=== PATIENT | female | born 1975 | race Caucasian/White ===

== ENCOUNTER 2023-04-08 11:06 | Outpatient (CLI) | payer OTHER, SELFPAY | END 2023-04-08 11:07 | disposition home or self-care (01) | LOC: ANHAUDIO 11:07 | DX: H66.93 Otitis media, unspecified, bilateral (principal); H69.83 Other specified disorders of Eustachian tube, bilateral; H90.42 Sensorineural hearing loss, unilateral, left ear, with unrestricted hearing on the contralateral side; H90.11 Conductive hearing loss, unilateral, right ear, with unrestricted hearing on the contralateral side | CPT/HCPCS: 92557; 92567 ==

== ENCOUNTER 2025-01-08 15:22 | Emergency (ER) | payer SELFPAY ==
--- OUTSIDE RECORDS SUMMARY | 2025-01-08 15:26 | XMS_ITS | Data Portability ---
[facility] Address [address] [place] [address] Assessment Encounter Date Assessment Date Assessment LastModified by Organization Details LastModified Time 05/26/2021 05/26/2021 colonoscopy due summer 2022 [email or web address] Not available 05/27/2021 12:42:40 11/01/2022 11/01/2022 WESLEY screening if labs neg? punch biopsy for lesion on back [email or web address] Not available 11/01/2022 14:20:30 Plan of Treatment Reminders Order Date Submit Date Provider Last Modified By Organization Details Last Modified Time Details Appointments None recorded. Lab lipid panel, serum 2022 023 [facility], [address], [place], [address], 3 19:08:43 HbA1c (hemoglob in A1c), blood 2022 023 [facility], [address], [place], [address], 3 10:14:13 vitamin B12, serum 2022 023 [facility], [address], [place], [address], 3 10:14:13 ferritin, serum or plasma 2022 023 [facility], [address], [place], [address], 3 10:14:15 iron + total iron-bind ing capacity (TIBC), serum 2022 023 [facility], [address], [place], [address], 3 10:14:12 CBC w/ auto diff 2022 023 [facility], [address], [place], [address], 3 19:08:44 Hepatitis C IgG Ab, qual, serum 2022 023 [facility], [address], [place], [address], 3 10:14:11 CMP, serum or plasma 2022 023 [facility], [address], [place], [address], 3 19:08:43 TSH, ultra-sen sitive, serum 2022 023 [facility], [address], [place], [address], 3 10:14:14 Referral None recorded. Procedures None recorded. Surgeries None recorded. Imaging XR, finger(s) , 2 or more view 2024 025 [facility], [address] [place], [address], 5 13:33:39 XR, hand, 3 or more view 2024 025 [facility], [address] [place], [address], 5 23:12:45 MAMMO, screening , digital, bilateral 2020 021 [facility] (Radiology), [address], [place], [address], 1 11:20:22 Medication Orders Cymbalta 30 mg capsule,d elayed release 2022 023 [facility] #30304, [address], [place], [place], [id number], 5 11:05:23 cyclobenz aprine 10 mg tablet 2022 023 [facility] #26438, [address], [place], [place], [id number], 3 10:35:21 hydroxyzi ne pamoate 25 mg capsule 2022 023 [facility] #42687, [address], [place], [place], [id number], 3 14:22:13 duloxetin e 60 mg capsule,d elayed release 2020 021 [email or web address] [facility] #39213, [address], [place], [place], [id number], 3 10:31:04 cyclobenz aprine 10 mg tablet 2020 021 [facility] #10467, [address] [place], [place], [id number], 1 11:10:36 levothyro xine 150 mcg tablet 2020 021 [facility] #74284, [address] [place], [place], [id number], 5 11:04:06 Patient TargetsNo targets recorded. Patient Instructions Encounter Date Encounter Id Patient Instructions Last Modified By Organization Details Last Modified Time 11/01/2022 [id number] Quitting Tobacco : Care Instructions [email or web address] Not available 11/01/2022 14:22:07 A healthy lifestyle: care instructions [email or web address] Not available 11/01/2022 10:35:12 11/05/2022 [id number] I was present fo r the procedure and agree with the documented procedure and plan. Tello Bucio MD, [facility] [email or web address] Not available 11/08/2022 09:55:31 07/03/2024 [id number] I was present in the clinic to discuss this patient at the time of the visit. I agree with the documented assessment and plan Víctor Sanchez MD [email or web address] Not available 07/25/2024 13:04:08 07/25/2024 [id number] Attending Physician Attestation I did not personally see or examine the patient with the resident. I was physically present to provide indirect supervision through entire encounter. I have reviewed the documentation and agree with the history, physical findings, work-up, and medical decision making as recorded. Niharika Mcmillan MD [email or web address] Not available 07/25/2024 11:13:25 Reason for Referral None Reported. Results Created Date Observation Date Name Description Value Unit Range Abnormal Flag Note LastModifiedBy Organization Detail LastModifiedTime 10/20/1910/19/2022 pap, IG + HR HPV Pap,thinprep ,HPV negati ve Not Available Not Available 14:21:03 11/02/19 23 11/01/2022 LIPID PANEL cholesterol, total 354.3 mg/dL 140.0- 200.0 above high normal Not Available [facility] Department [address] [place], [address], 11/01/2022 19:08:43 11/02/19 23 11/01/2022 LIPID PANEL triglyceride s 285 mg/dL <=150 above high normal Not Available [facility] Department [address] [place], [address], 11/01/2022 19:08:43 11/02/19 23 11/01/2022 LIPID PANEL HDL cholesterol 39.5 mg/dL 40.0-1 00.0 below low normal Not Available [facility] Department [address] [place], [address], 11/01/2022 19:08:43 11/02/19 23 11/01/2022 LIPID PANEL VLDL cholesterol anish 57.00 mg/dL 5.00-4 0.00 above high normal Not Available [facility] Department [address] [place], [address], 11/01/2022 19:08:43 11/02/19 23 11/01/2022 LIPID PANEL LDL chol calc ([facility]) 253.4 mg/dL 0.0-99 .0 above high normal Not Available [facility] Department [address] [place], [address], 11/01/2022 19:08:43 11/02/19 23 11/01/2022 COMP. METAB OLIC PANEL (14) glucose 99 mg/dL 65-99 ANION GP 17.0 mmol/ L N OSMOL 283.0 mOsM/ L N REFER ENCE RANGE : 275.0 -301. 0 Not Available [facility] Department [address] [place], [address], 11/01/2022 19:08:43 11/02/19 23 11/01/2022 COMP. METAB OLIC PANEL (14) BUN 22 mg/dL 8-26 Not Available [facility] Department [address] [place], [address], 11/01/2022 19:08:43 11/02/19 23 11/01/2022 COMP. METAB OLIC PANEL (14) creatinine 0.67 mg/dL 0.50-1 .40 Not Available [facility] Department [address] [place], [address], 11/01/2022 19:08:43 11/02/19 23 11/01/2022 COMP. METAB OLIC PANEL (14) eGFR 107 mL/mi n/1.7 3 >=60 Not Available [facility] Department [address] [place], [address], 11/01/2022 19:08:43 11/02/19 23 11/01/2022 COMP. METAB OLIC PANEL (14) BUN/creatini ne ratio 32.1 Not Available [facility] Department [address] [place], [address], 11/01/2022 19:08:43 11/02/19 23 11/01/2022 COMP. METAB OLIC PANEL (14) sodium 140.0 mmol/ L 136.0- 144.0 Not Available [facility] Department [address] [place] [address], [address], 11/01/2022 19:08:43 11/02/19 23 11/01/2022 COMP. METAB OLIC PANEL (14) potassium 4.5 mmol/ L 3.5-5. 3 Not Available [facility] Department [address] [place] [address], [address], 11/01/2022 19:08:43 11/02/19 23 11/01/2022 COMP. METAB OLIC PANEL (14) chloride 104 mmol/ l 101-11 1 Not Available [facility] Department [address] [place] [address], [address], 11/01/2022 19:08:43 11/02/19 23 11/01/2022 COMP. METAB OLIC PANEL (14) carbon dioxide, total 23.7 mmol/ L 21.0-3 2.0 Not Available [facility] Department [address] [place] [address], [address], 11/01/2022 19:08:43 11/02/19 23 11/01/2022 COMP. METAB OLIC PANEL (14) calcium 10.0 mg/dL 8.2-10 .0 Not Available [facility] Department [address] [place], [address], 11/01/2022 19:08:43 11/02/19 23 11/01/2022 COMP. METAB OLIC PANEL (14) protein, total 7.3 g/dL 6.7-8. 2 Not Available [facility] Department [address] [place], [address], 11/01/2022 19:08:43 11/02/19 23 11/01/2022 COMP. METAB OLIC PANEL (14) albumin 4.5 g/dL 3.5-5. 5 Not Available [facility] Department [address] [place], [address], 11/01/2022 19:08:43 11/02/19 23 11/01/2022 COMP. METAB OLIC PANEL (14) globulin, total 2.8 g/dL 1.5-4. 5 Not Available [facility] Department [address] [place], [address], 11/01/2022 19:08:43 11/02/19 23 11/01/2022 COMP. METAB OLIC PANEL (14) A/G ratio 1.6 Not Available [facility] Department [address] [place], [address], 11/01/2022 19:08:43 11/02/19 23 11/01/2022 COMP. METAB OLIC PANEL (14) bilirubin, total 0.4 mg/dL 0.0-1. 2 Not Available [facility] Department [address] [place], [address], 11/01/2022 19:08:43 11/02/19 23 11/01/2022 COMP. METAB OLIC PANEL (14) alkaline phosphatase 64.4 IU/L 42.0-1 21.0 Not Available [facility] Department [address] [place], [address], 11/01/2022 19:08:43 11/02/19 23 11/01/2022 COMP. METAB OLIC PANEL (14) AST (SGOT) 35.7 U/L 10.0-4 2.0 Not Available [facility] Department [address] [place], [address], 11/01/2022 19:08:43 11/02/19 23 11/01/2022 COMP. METAB OLIC PANEL (14) ALT (SGPT) 47.9 U/L 10.0-6 0.0 Not Available [facility] Department [address] [place], [address], 11/01/2022 19:08:43 11/02/19 23 11/01/2022 CBC WITH DIFFE RENTI AL/PL ATELE T WBC 7.8 K/uL 3.4-10 .8 Not Available [facility] Department [address] [place], [address], 11/01/2022 19:08:44 11/02/19 23 11/01/2022 CBC WITH DIFFE RENTI AL/PL ATELE T RBC 6.4 M/uL 4.2-5. 4 above high normal Not Available [facility] Department [address] [place], [address], 11/01/2022 19:08:44 11/02/19 23 11/01/2022 CBC WITH DIFFE RENTI AL/PL ATELE T hemoglobin 12.7 g/dL 11.5-1 5.5 Not Available [facility] Department [address] [place], [address], 11/01/2022 19:08:44 11/02/19 23 11/01/2022 CBC WITH DIFFE RENTI AL/PL ATELE T hematocrit 42.1 % 36.0-4 8.0 Not Available [facility] Department [address] [place], [address], 11/01/2022 19:08:44 11/02/1911/01/2022 CBC WITH DIFFE RENTI AL/PL ATELE T MCV 66 fL 80-95 below low normal Not Available [facility] Department [address] [place], [address], 11/01/2022 19:08:44 11/02/19 23 11/01/2022 CBC WITH DIFFE RENTI AL/PL ATELE T MCH 20 pg 27-32 below low normal Not Available [facility] Department [address] [place], [address], 11/01/2022 19:08:44 11/02/19 23 11/01/2022 CBC WITH DIFFE RENTI AL/PL ATELE T MCHC 30 g/dL 32-36 below low normal Not Available [facility] Department [address] [place], [address], 11/01/2022 19:08:44 11/02/19 23 11/01/2022 CBC WITH DIFFE RENTI AL/PL ATELE T RDW 17.6 % 11.5-1 4.5 above high normal Not Available [facility] Department [address] [place], [address], 11/01/2022 19:08:44 11/02/19 23 11/01/2022 CBC WITH DIFFE RENTI AL/PL ATELE T platelets 325 K/uL 155-37 9 MPV 12.0 FL 8.9-1 2.7 N Not Available [facility] Department [address] [place], [address], 11/01/2022 19:08:44 11/02/19 23 11/01/2022 CBC WITH DIFFE RENTI AL/PL ATELE T neutrophils 52.7 % 40.0-7 4.0 Not Available [facility] Department [address] [place], [address], 11/01/2022 19:08:44 11/02/19 23 11/01/2022 CBC WITH DIFFE RENTI AL/PL ATELE T lymphs 26.5 % 14.0-4 6.0 Not Available [facility] Department [address] [place], [address], 11/01/2022 19:08:44 11/02/19 23 11/01/2022 CBC WITH DIFFE RENTI AL/PL ATELE T monocytes 10.3 % 4.0-12 .0 Not Available [facility] Department [address] [place], [address], 11/01/2022 19:08:44 11/02/19 23 11/01/2022 CBC WITH DIFFE RENTI AL/PL ATELE T eos 5 % 0-5 Not Available [facility] Department [address] [place], [address], 11/01/2022 19:08:44 11/02/19 23 11/01/2022 CBC WITH DIFFE RENTI AL/PL ATELE T basos 2.1 % 0.0-1. 0 above high normal Not Available [facility] Department [address] [place], [address], 11/01/2022 19:08:44 11/02/19 23 11/01/2022 CBC WITH DIFFE RENTI AL/PL ATELE T neutrophils (absolute) 4.1 K/uL 1.4-7. 0 Not Available [facility] Department [address] [place], [address], 11/01/2022 19:08:44 11/02/19 23 11/01/2022 CBC WITH DIFFE RENTI AL/PL ATELE T lymphs (absolute) 2.1 K/uL 0.7-3. 1 Not Available [facility] Department [address] [place], [address], 11/01/2022 19:08:44 11/02/19 23 11/01/2022 CBC WITH DIFFE RENTI AL/PL ATELE T monocytes(ab solute) 0.8 K/uL 0.1-0. 9 Not Available [facility] Department [address] [place], [address], 11/01/2022 19:08:44 11/02/19 23 11/01/2022 CBC WITH DIFFE RENTI AL/PL ATELE T eos (absolute) 0.4 K/uL 0.0-0. 4 Not Available [facility] Department [address] [place], [address], 11/01/2022 19:08:44 11/02/19 23 11/01/2022 CBC WITH DIFFE RENTI AL/PL ATELE T baso (absolute) 0.2 K/uL 0.0-0. 3 Not Available [facility] Department [address] [place], [address], 11/01/2022 19:08:44 11/02/19 23 11/01/2022 CBC WITH DIFFE RENTI AL/PL ATELE T immature granulocytes 3.1 % Not Available [facility] Department [address] [place], [address], 11/01/2022 19:08:44 11/02/19 23 11/01/2022 CBC WITH DIFFE RENTI AL/PL ATELE T immature grans (abs) 0.2 K/uL Not Available [facility] Department [address] [place], [address], 11/01/2022 19:08:44 11/02/19 23 11/01/2022 CBC WITH DIFFE RENTI AL/PL ATELE T NRBC 0 % Not Available [facility] Department [address] [place], [address], 11/01/2022 19:08:44 11/02/19 23 11/02/2022 HCV ANTIB HAMILTON RFX TO QUANT PCR HCV Ab Non Reacti ve nonrea ctive Not Available [facility] ([facility]) [address] [facility], [place], [address], 11/02/2022 10:14:11 11/02/1911/02/2022 IRON AND TIBC iron bind.cap.(TI BC) 371 ug/dL 250-45 0 Not Available [facility] ([facility]) [address] [facility] [facility], [place], [address], 11/02/2022 10:14:12 11/02/19 23 11/02/2022 IRON AND TIBC UIBC 243 ug/dL 131-42 5 Not Available [facility] ([facility]) [address] [place], [address], 11/02/2022 10:14:12 11/02/19 23 11/02/2022 IRON AND TIBC iron 128 ug/dL 27-159 Not Available [facility] ([facility]) [address] [place], [address], 11/02/2022 10:14:12 11/02/19 23 11/02/2022 IRON AND TIBC iron saturation 35 % 15-55 Not Available [facility] ([facility]) [address] [place], [address], 11/02/2022 10:14:12 11/02/19 23 11/02/2022 HEMOG LOBIN A1C hemoglobin A1C 5.7 % 4.8-5. 6 above high normal Predi abete s: 5.7 - 6.4 Diabe neelam: >6.4 Glyce minerva contr ol for adult s with diabe neelam: <7.0 Not Available [facility] ([facility]) [address] [place], [address], 11/02/2022 10:14:13 11/02/1911/02/2022 VITAM IN B12 vitamin B12 381 pg/mL 232-12 45 Not Available [facility] ([facility]) [address] [place], [address], 11/02/2022 10:14:13 11/02/1911/02/2022 TSH TSH 5.900 uIU/m L 0.450- 4.500 above high normal Not Available [facility] ([facility]) [address] [place], [address], 11/02/2022 10:14:14 11/02/19 23 11/02/2022 CLARENCE TIN ferritin 138 NG/mL 15-150 Not Available [facility] ([facility]) [address] [facility], [place], [address], 11/02/2022 10:14:15 11/02/19 23 11/02/2022 INTER PRETA TION: interpretati on: Commen t Not infec daisy with HCV unles s early or acute infec tion is suspe cted (whic h may be delay ed in an immun ocomp romis ed indiv idual ), or other evide nce exist s to indic ate HCV infec tion. Not Available [facility] ([facility]) [address] [facility], [place], [address], 11/02/2022 10:14:11 11/06/19 23 11/16/2022 PATHO LOGY REPOR T . Commen t Mater ial submi tted: . back - BACK Not Available [facility] ([facility]) [address] [facility], [place], [address], 11/16/2022 13:08:32 11/06/19 23 11/16/2022 PATHO LOGY REPOR T . Commen t Clini anish histo ry: . DISOR VITALY OF THE SKIN AND SUCUT ANEOU S TISSU E, UNSPE CIFIE D Not Available [facility] ([facility]) [address] [facility], [place], [address], 11/16/2022 13:08:32 11/06/1911/16/2022 PATHO LOGY REPOR T . 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 GEA 11/16 0753 Local Not Available [facility] ([facility]) [address] [facility], [place], [address], 11/16/2022 13:08:32 11/06/19 23 11/16/2022 PATHO LOGY REPOR T . Commen t Elect juma mathise d: . Zulay MD, [place] topat holog ist Not Available [facility] ([facility]) [address] [facility], [place], [address], 11/16/2022 13:08:32 11/06/19 23 11/16/2022 PATHO LOGY REPOR T . Commen t Gross descr iptio n: . 1 Conta iner, forma roxie-f illed , label ed with patie nt ident ifica tion. BACK: 1 PUNCH BIOPS Y OF BALDERAS SKIN MEASU RING 0.6 X 0.5 X 0.5 CM. ON THE SURFA CE IS A FLAT BALDERAS-B ROWN 0.5 CM LESIO N. THE LESIO N APPEA RS TO INVOL VE THE TRAVON N. THE SURGI ANISH TRAVON N IS INKED BLUE. THE SPECI MEN IS BISEC DAISY. IT IS SUBMI TTED ENTIR LESA IN CASSE TTE(S ) A1. THERE ARE 2 PIECE S TOTAL . CKA/C KA 11/11 0849 Local Not Available [facility] ([facility]) [address] [facility], [place], [address], 11/16/2022 13:08:32 11/06/19 23 11/16/2022 PATHO LOGY REPOR T . Commen t Patho logis t provi ded ICD-1 0: L82.1 Not Available [facility] ([facility]) [address] [facility], [place], [address], 11/16/2022 13:08:32 11/06/19 23 11/16/2022 PATHO JOHN Tavarez Maynor ib[place] C[place] . [address] 1 Not Available [facility] ([facility]) [address], [place], [address], 11/16/2022 13:08:32 10/21/19 23 10/19/2022 MAMMO , scree fernanda, digit al, bilat eral No observ ation record ed. [email or web address] [facility] [address], [place], [address], 10/20/2022 11:57:48 06/12/20 24 06/12/2024 XR, hand, 3 or more view No observ ation record ed. [address] [place], [address], 06/18/2024 15:14:09 07/03/19 25 07/03/2024 lab* No observ ation record ed. [address] [place], [address], 07/05/2024 14:51:13 07/03/19 25 07/03/2024 XR, hand, 3 or more view No observ ation record ed. [address] [place], [address], 07/05/2024 14:52:14 07/05/19 25 07/03/2024 XR, hand, 3 or more view No observ ation record ed. [address] [place], [address], 07/23/2024 15:55:35 07/05/19 25 07/03/2024 XR, hand, 3 or more view No observ ation record ed. [address] [place], [address], 07/23/2024 15:55:36 Result Notes Documentation Provider Name and Address Organization Details Recorded Time Mammo, Screening, Digital, Bilateral : Mammogram Mammogram Right: normal Left: normal Alyssa Goode RN null, [facility] 10/20/2022 11:57:48 Problems Name Problem SNOMED Code Status Onset Date Resolution Date Notes Provider Name and Address Organization Details Recorded Time Hypothyroid ism 43020297 Active 2015 Alyssa Christian MA null, [facility] 6 16:01:56 Migraine 02731308 Completed 201505/06/2016 KIMBERLI Joseph Attn: Accountin g,[address] [facility], [place], [address], [facility] 6 14:54:48 Persistent insomnia 244336934 Active 2018 KIMBERLI Joseph Attn: Accounthenry g,[address] [facility], [place], [address], [facility] 9 12:40:55 Chronic mastoiditis 16860154 Active 2018 KIMBERLI Joseph Attn: Accountin g,[address] [facility], [place], [address], [facility] 9 09:42:23 Diverticula r disease of colon 715223412 Active 2018 KIMBERLI Joseph Attn: Accountin g,[address] [facility], [place], [address], [facility] 9 09:42:26 Problem Notes None recorded. Procedures Surgical History Date Name Laterality Status Provider Name and Address Organization Details Recorded Time 3 Punch Biopsy completed Renae Bucio MD Attn: Accounting,[address] [facility], [place], [address], [facility] 11/09/2022 15:50:22 3 Unlisted procedure nose completed Alyssa Christian MA [facility] 04/01/2016 13:53:20 Dilation and Curettage completed Alyssa Christian MA [facility] 04/01/2016 13:52:44 Eardrum revision completed Alyssa Christian [place] [facility] 04/01/2016 13:52:55 Imaging Results None recorded. Procedure Notes None recorded. Medical Equipment None Reported. Allergies Allergen ID Allergen Name Allergen Category Reaction Reaction Severity Criticality Documentation Date Start Date Code Code System Note Provider Name and Address Organization Details Recorded Time 548304 Reglan medicatio n other Not available Not available 09/02/2017 9230 RxNorm has a hard time [place]ERT [place], [place] - [facility] 8 11:45:49 62733 morphine medicatio n itching moderate Not available 04/01/2016 7052 RxNorm [place], [place] - [facility] 6 13:50:31 20990 Levaquin medicatio n vomiting severe Not available 04/01/2016 69688 2 RxNorm [place], [place] - [facility] 6 13:50:48 31626 Imitrex medicatio n respirato ry distress Not available Not available 05/06/2016 65367 3 RxNorm [place], [place] - [facility] 6 14:43:07 Medications Name Sig Start Date Stop Date Status Note LastModified by Organization Details LastModified Time cyclobenza allie 10 mg tablet TAKE 1 TABLET BY MOUTH THREE TIMES DAILY NEEDED FOR MUSCLE PAIN OR SPASMS active Not Available Not Available No t Available amoxicilli n 500 mg capsule 12/18 completed Pt states not taking Not Available Not Available Not Available [place] Thyroid 60 mg tablet 03/10 completed Not Available Not Available Not Available levothyrox ine 175 mcg tablet TAKE 1 TABLET BY MOUTH EVERY DAY active Not Available Not Available No t Available levothyrox ine 137 mcg tablet 04/01 completed Not Available Not Available Not Available doxycyclin e hyclate 100 mg capsule 11/01 completed Not Available Not Available Not Available clindamyci n HCl 300 mg capsule TAKE 1 CAPSULE BY MOUTH THREE TIMES DAILY 11/01 completed Not Available Not Available Not Available albuterol sulfate 2.5 mg/3 mL (0.083 %) solution for nebulizati on NEBULIZE AND INHALE ONE VIAL EVERY SIX HOURS NEEDED FOR WHEEZING active Not Available Not Available No t Available azithromyc in 250 mg tablet TK 2 TS PO ON DAY 1, THEN TK 1 T PO D FOR 4 DAYS. 11/01 completed Not Available Not Available Not Available ibuprofen 800 mg tablet 06/13 completed Not Available Not Available Not Available hydrocodon e 5 mg-acetami nophen 325 mg tablet TAKE 1 TO 2 TABLETS BY MOUTH EVERY 6 HOURS NEEDED FOR PAIN. DO NOT EXCEED 8 TABLETS DAILY 11/01 completed Not Available Not Available Not Available metronidaz ole 0.75 % (37.5 mg/5 gram) vaginal gel 03/10 completed Not Available Not Available Not Available ondansetro n HCl 4 mg tablet 11/01 completed Not Available Not Available Not Available prednisone 20 mg tablet Take 3 tablets by mouth x 2 days, then take 2 tablets by mouth x 2 days then take 1 tablet by mouth x 2 days 11/01 completed Not Available Not Available Not Available clindamyci n HCl 150 mg capsule 12/18 completed Pt states not taking Not Available Not Available Not Available sumatripta n 50 mg tablet take one tablet by mouth for onset of headache may repeat dose in 2 hours if no relief no mor than 200mg in a 24 hour 05/02 completed Not Available Not Available Not Available hydroxyzin e pamoate 50 mg capsule TK 1 C PO TID PRN 03/10 completed Not Available Not Available Not Available metronidaz ole 500 mg tablet 03/10 completed Not Available Not Available Not Available hydroxyzin e HCl 50 mg tablet Take 1 tablet 4 times a day by oral route as needed. 09/02 completed Not Available Not Available Not Available acetaminop hen 300 mg-codeine 30 mg tablet Take 1 tablet every 6 hours by oral route as needed. 03/10 completed Pt states not taking Not Available Not Available Not Available ciprofloxa carter 500 mg tablet 12/18 completed Pt states not taking Not Available Not Available Not Available Tamiflu 75 mg capsule 06/23 completed Not Available Not Available Not Available sulfametho xazole 800 mg-trimeth oprim 160 mg tablet TAKE 1 TABLET BY MOUTH TWICE DAILY 11/01 completed Not Available Not Available Not Available doxycyclin e monohydrat e 100 mg tablet TAKE 1 TABLET BY MOUTH TWICE DAILY FOR 10 DAYS 03/10 completed Not Available Not Available Not Available tramadol 50 mg tablet TAKE 1 TABLET BY MOUTH EVERY 6 HOURS NEEDED FOR PAIN active Not Available Not Available No t Available butalbital -acetamino phen-caffe ine 50 mg-325 mg-40 mg tablet TAKE 1 TABLET BY MOUTH EVERY 4 HOURS NEEDED FOR HEADACHE 03/10 completed Not Available Not Available Not Available ketorolac 0.5 % eye drops INSTILL 1 DROP INTO LEFT EYE UP TO FOUR TIMES DAILY NEEDED FOR EYE PAIN 03/10 completed Not Available Not Available Not Available amoxicilli n 875 mg tablet TAKE 1 TABLET BY MOUTH EVERY 12 HOURS FOR 10 DAYS 07/03 completed Not Available Not Available Not Available benzonatat e 100 mg capsule 06/22 completed Not Available Not Available Not Available cephalexin 500 mg capsule 03/10 completed Not Available Not Available Not Available paroxetine 20 mg tablet TAKE 1 TABLET BY MOUTH EVERY DAY 09/02 completed Not Available Not Available Not Available erythromyc in 5 mg/gram (0.5 %) eye ointment APPLY 1 CENTIMET ER TO AFFECTED EYE EVERY 4 HOURS WHILE AWAKE FOR 1 WEEK 03/10 completed Not Available Not Available Not Available dexamethas one 4 mg tablet TAKE 1 TABLET BY MOUTH TWICE DAILY FOR 3 DAYS 07/03 completed Not Available Not Available Not Available polymyxin B sulfate 10,000 unit-trime thoprim 1 mg/mL eye drops INSTILL 1 DROP IN EACH EYE EVERY 3 HOURS WHILE AWAKE FOR 7 DAYS. DO NOT EXCEED 6 DOSES IN 24 HOURS 07/03 completed Not Available Not Available Not Available levothyrox ine 150 mcg tablet TAKE 1 TABLET BY MOUTH EVERY DAY 07/03 completed Not Available Not Available Not Available butalbital -aspirin-c affeine 50 mg-325 mg-40 mg capsule 03/10 completed Not Available Not Available Not Available acetaminop hen 300 mg-codeine 60 mg tablet 07/19 completed Not Available Not Available Not Available levothyrox ine 200 mcg tablet TAKE 1 TABLET BY MOUTH EVERY DAY 03/10 completed Not Available Not Available Not Available methylpred nisolone 4 mg tablets in a dose pack FOLLOW DIRECTIO NS ON PACKAGE 07/03 completed Not Available Not Available Not Available albuterol sulfate HFA 90 mcg/actuat ion aerosol inhaler INHALE 2 PUFFS BY MOUTH EVERY 4 HOURS NEEDED FOR WHEEZING active Not Available Not Available No t Available ondansetro n 4 mg disintegra ting tablet DISSOLVE 1 TABLET BY MOUTH EVERY 4 HOURS NEEDED FOR NAUSEA active Not Available Not Available No t Available cefdinir 300 mg capsule TAKE ONE CAPSULE BY MOUTH TWICE DAILY FOR 10 DAYS. DELFINA PICHARDO MD 07/03 completed Not Available Not Available Not Available fluticason e propionate 50 mcg/actuat ion nasal spray,susp ension SHAKE LIQUID AND USE 1 SPRAY IN EACH NOSTRIL DAILY active Not Available Not Available No t Available naproxen 500 mg tablet TAKE 1 TABLET BY MOUTH TWICE DAILY NEEDED 03/10 completed Not Available Not Available Not Available amoxicilli n 875 mg-potassi um clavulanat e 125 mg tablet 03/10 completed Pt states not taking Not Available Not Available Not Available amoxicilli n 500 mg-potassi um clavulanat e 125 mg tablet TAKE 1 TABLET BY MOUTH TWICE DAILY FOR 10 DAYS 11/01 completed Not Available Not Available Not Available hydroxyzin e pamoate 25 mg capsule TAKE 1 CAPSULE BY MOUTH THREE TIMES DAILY NEEDED FOR ANXIETY active Not Available Not Available No t Available rosuvastat in 40 mg tablet TAKE 1 TABLET BY MOUTH EVERY DAY 07/03 completed Not Available Not Available Not Available duloxetine 30 mg capsule,de layed release TAKE 1 CAPSULE BY MOUTH EVERY DAY 07/03 completed Not Available Not Available Not Available duloxetine 60 mg capsule,de layed release TAKE 1 CAPSULE BY MOUTH EVERY DAY 11/01 completed Not Available Not Available Not Available Virtussin AC 10 mg-100 mg/5 mL oral liquid Take 10 mL every 4 hours by oral route as needed. 06/29 completed Not Available Not Available Not Available Fluvirin 8417-7580 (PF) 45 mcg(15 mcg x3)/0.5 mL intramuscu lar syringe 09/02 completed Not Available Not Available Not Available Paxlovid 300 mg (150 mg x 2)-100 mg tablets in a dose pack TAKE 2 NIRMATRE LVIR TABLETS AND 1 RITONAVI R TABLET TOGETHER BY MOUTH TWICE DAILY FOR 5 DAYS 07/03 completed Not Available Not Available Not Available Vitals Date Recorded Body height Body mass index (BMI) Body weight Heart rate Respiratory rate Body temperature Systolic And Diastolic Provider Name and Address Organization Details Last Updated DateTime 5 157.48 cm 30.4 kg/m2 59638.3 3 g 68 /min 18 /min 98.3 [degF] 132/90 mm[Hg] Ember Clark MA [facility] 5 10:38:25 Date Recorded Body height Body mass index (BMI) Body weight Heart rate Respiratory rate Body temperature Systolic And Diastolic Provider Name and Address Organization Details Last Updated DateTime 5 157.48 cm 30.8 kg/m2 62020.6 7 g 84 /min 18 /min 98.3 [degF] 113/74 mm[Hg] Ember Clark MA [facility] 5 09:39:20 Date Recorded Body height Body mass index (BMI) Body weight Heart rate Respiratory rate Body temperature Systolic And Diastolic Provider Name and Address Organization Details Last Updated DateTime 3 157.48 cm 30.9 kg/m2 55421.8 1 g 82 /min 16 /min 98.4 [degF] 121/84 mm[Hg] Alyssa Christian MA [facility] 3 10:08:51 Date Recorded Body height Body mass index (BMI) Body weight Heart rate Respiratory rate Body temperature Systolic And Diastolic Provider Name and Address Organization Details Last Updated DateTime 3 157.48 cm 31.2 kg/m2 49486.8 5 g 80 /min 20 /min 98.3 [degF] 118/80 mm[Hg] Ember Clark MA [facility] 3 10:53:04 Date Recorded Body height Body mass index (BMI) Body weight Body temperature Heart rate Respiratory rate Systolic And Diastolic Provider Name and Address Organization Details Last Updated DateTime 1 157.48 cm 32.8 kg/m2 13045.3 8 g 98.3 [degF] 86 /min 18 /min 138/86 mm[Hg] Ember Clark MA [facility] 1 10:32:59 Social History Question Answer Notes LastModified by Organizat ion Details LastModified Time Tobacco Smoking Status Current Every Day Smoker Ember Clark MA [facility], [place] - [facility] 03/10/2021 10:34:31 Do You Have An Advance Directive? No Information n ot available 03/10/2021 Are You Blind Or Do You Have Difficulty Seeing? No Information n ot available 03/10/2021 What Is Your Level Of Caffeine Consumption? Moderate Information not available 03/10/2021 In The 14 Days Before Symptom Onset, Have You Had Close Contact With A Laboratory-confirm ed COVID-19 While That Case Was Ill? No Information n ot available 03/10/2021 In The 14 Days Before Symptom Onset, Have You Had Close Contact With A Person Who Is Under Investigation For COVID-19 While That Person Was Ill? No Information not available 03/10/2021 Have You Been To An Area Known To Be High Risk For COVID-19? No Information not available 03/10/2021 Are You Deaf Or Do You Have Serious Difficulty Hearing? No Information not available 03/10/2021 What Type Of Diet Are You Following? REGULAR Information n ot available 03/10/2021 Are There Any Guns Present In Your Home? No Information not available 03/10/2021 What Was The Date Of Your Most Recent Tobacco Screening? 07/25/2024 Information not available 07/25/2024 How Many Children Do You Have? 7 Information not available 03/10/2021 What Is Your Relationship Status? Information not available 03/10/2021 Do You Use Your Seat Belt Or Car Seat Routinely? Yes Information not available 03/10/2021 Do You Have Smoke And Carbon Monoxide Detectors In Your Home? Yes Information not available 03/10/2021 Are You Passively Exposed To Smoke? No Information no t available 03/10/2021 How Much Tobacco Do You Smoke? 1 PPD Information not available 03/10/2021 Do You Use Sunscreen Routinely? No Information not available 03/10/2021 Has Tobacco Cessation Counseling Been Provided? Yes Information not available 11/05/2022 On What Date Was Tobacco Cessation Counseling Provided? 07/25/2024 Information not available 07/25/2024 Sex: Female Functional Status Question Answer Note LastModified by Organization D etails LastModified Time Are you currently employed? No Information not available 03/10/2021 Are you able to care for yourself? Yes Information n ot available 03/10/2021 Mental Status Question Answer Note LastModified by Organization D etails LastModified Time Do you feel stressed (tense, restless, nervous, or anxious, or unable to sleep at night)? [id number] Information not available 03/10/2021 Family History Relationship Description Onset Age of this Age Resolved Age Notes LastModified by Organization Details LastModified Time Mother Diabetes mellitus amcmanis Not available 2015 13:51:19 Mother Heart disease amcmanis Not available 2015 13:51:28 Mother Hypercholest erolemia amcmanis Not available 2015 13:51:48 Father Heart disease amcmanis Not available 2015 13:52:02 Sister Heart disease amcmanis Not available 2015 13:52:08 Medical History Condition Response Thyroid Problems Y Gynecological HistoryNo gynecological history recorded. Obstetrics History GPAL:G 0 P 0 0 0 0 Immunizations Vaccine Type Date Status Note Provider Nam e and Address Organization Details Recorded Time Influenza, split virus, quadrivalent, PF 7 completed Not Available [facility] 07/07/2019 02:32:58 Hep B, adult 7 completed Not Available [facility] 07/07/2019 02:33:52 Influenza, split virus, quadrivalent, preservative 7 completed Not Available [facility] 07/21/2019 02:11:44 Past Encounters Encounter ID Performer Location Encounter Start Date Encounter Closed Date Diagnosis/Indication Diagnosis SNOMED-CT Code Diagnosis ICD10 Code Diagnosis Note [id number] MD Ashley Morales [facility] ([place] 205) [address] [facility] [address] [place] [address] 04/01/2016 13:30:02 04/01/2016 16:37:40 Headache 03136453 R51 Counseled on headache, medication and lab work. Advised to refrain from triggers such as chocolate, red wine, cheeses. Advised to get 8 hours of sleep a night. Increase water intake and change diet to healthy low carb diet and exercise for weight loss. Advised to keep log of headaches when they occure-adv ised to have eyes checked [id number] MD Ashley Quinteros ([place] [address]) [address] [facility] [place] [address] 05/06/2016 14:35:02 05/07/2016 09:51:07 Hypothyroidism 77050517 E03.9 Headache 35051830 R51 Counseled on headache, medication -advised to finish antibiotic and use Nparoxen for pain/hydro codone for breakthrou gh pain. Advised to refrain from triggers such as chocolate, red wine, cheeses. Advised to get 8 hours of sleep a night. Increase water intake and change diet to healthy low carb diet and exercise for weight loss. Advised to keep log of headaches when they occure-adv ised to have eyes checked Dental abscess 177654738 K04.7 Numbers to dentist given-cont inue antibiotic , pain medication as needed-lalito y likely tooth pain is causing headaches to left temporal region-onc e tooth removed and headaches recur advised to return to office [id number] MD Ashley Quinteros ([place] [address]) [address] [facility] [place] [address] 06/23/2016 14:31:13 06/28/2016 10:01:35 Viral syndrome 486447429 B34.9 R05 Counseled on viral syndrome/c ough-Warm salt water gargles, rest, increase fluids. Over the counter decongesta nt. Tylenol/Ib uprofen for pain/fever , humidifier in the house. [id number] MD Ashley Quinteros ([place] [address]) [address] [facility] [place] [address] 07/14/2016 14:26:54 07/15/2016 11:32:14 Adult health examination 821727733 Z00.00 Counseled on the importance of healthy diet and exercise for weight loss. Titers to be done-had lab work in March- L. Advised adequate calcium intake through dairy and dark leafy vegetables . Adequate hydration and decrease soda intake. Advised on immunizati ons-needs to show proof of Tdap, given Influenza, Hep B-now-will need to finish rest of series. PPD today. Obesity 580280558 E66.9 Tuberculos is screening 444324529 Z11.1 Administra tion of influenza vaccine 53216681 Z23 Requires c ourse of hepatitis B vaccination 772637288 Z23 [id number] MD Ashley Quinteros ([place] [address]) [address] [facility] [place] [address] 07/16/2016 10:03:16 07/16/2016 15:25:40 Influenza vaccine needed 7521713511 106 Z23 [id number] MD Ashley Quinteros ([place] [address]) [address] [facility] [place] [address] 07/21/2016 13:57:47 07/21/2016 14:53:32 Tuberculosis screening 849288679 Z11.1 [id number] MD Ashley Quinteros ([place] [address]) [address] [facility] [place] [address] 01/19/2017 14:41:20 01/20/2017 10:57:01 [place] eye disease 385983700 H10.89 Will continue antibiotic eye drop-impro yoni will give note to return to clinicals tomorrow-e ncourage good handwashin g Mixed anxi ety and depressive disorder 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 Encouraged to call for counseling , numbers given. Advised importance of stress reduction- walking, meditation , yoga. Encouraged to seek out help from loved ones and friends to help manage home life. Counseled on seeking help from 911 or go to ER for suicidal or homicidal thoughts. Depression screening 171 467943 Z13.89 [id number] MD Ashley Quinteros ([place] [address]) [address] [facility] [place] [address] 04/07/2017 16:42:41 04/08/2017 13:17:47 Hypothyroidism 60798540 E03.9 Counseled on hypothyroi d, lab work and medication -already Rx'd (complianc e addressed) -if unable to regulate levels pt aware will be referred to Endocrine Hordeolum externum of upper eyelid 538568294 H00.013 Advised to see eye dr de souza-medic ation discussed with patient [id number] MD Ashley Quinteros [facility] ([facility] 205) [address] [facility] [address] [place] [address] 09/02/2017 11:17:33 09/06/2017 17:31:55 Migraine 87342933 G43.909 Counseled on migraine and medication - Refrain from caffeine, chocolate, red wine, cheeses. Rest and stay hydrated. Find ways to manage stress-yog a, meditation , reading-ke headache log and take to neurology referral [id number] KIMBERLI Joseph 14 IM [address] [facility] [address] [place] [address] 12/15/2017 14:54:20 12/16/2017 11:12:45 Perforation of tympanic membrane 06320300 H72.92 Counseled on TM rupture and medication -stop Amoxicilla n and start Cefdinir-T #3 for severe breakthrou gh pain-refer ral to ENT [id number] MD Ashley Quinteros 14 IM [address] [facility] [address] [place] [address] 07/18/2018 09:33:28 07/18/2018 14:35:44 Persistent insomnia 272214680 G47.09 Counseled on insomnia and referral to sleep medicine Hypothyroidism 89532709 E03.9 Counseled on hypothyroi d, lab work and medication -already Rx'd (complianc e addressed) -keep appointmen t with Endocrine Noncomplia nce with medication regimen 548551706 Z91.14 [id number] MD Ashley Quinteros 14 IM [address] [facility] [address] [place] [address] 12/18/2018 15:45:22 12/19/2018 11:18:15 Chronic mastoiditis 69232134 H70.11 ENT referral-w ill try Cefdinir-w ill give 12 hydrocodon e to be used only for severe breakthrou gh pain not relieved by ibuprofen/ tylenol Diverticul ar disease of colon 227090614 K57.30 Referral to GI-pt aware must see for scope and further care [id number] MD Ashley Barakat 14 IM [address] [facility] [place] [address] 03/10/2021 10:17:06 03/11/2021 10:46:16 Hypothyroidism 00688944 E03.9 history of hypothyroi dism, off all meds. She is frustrated because even on high dose levothyrox ine symptoms were poorly controlled . Last TSH was 79 off meds per her report. Will check levels today off meds and get meds started. Will start 150mcg based on prior dosage and weight calculatio n pending results of her lab studies. Unintentio nal weight gain 6430738081 05295 R63.5 will check AM cortisoltr eat thyroid Elevated blood-pressure reading without diagnosis of hypertension 033012334 R03.0 advised will await normalizin g of her thyroid function before acting on this mildly elevated BP today. Seasonal a llergic rhinitis 421618917 J30.2 no evidence of acute rhinosinus itis. Will treat with flonase for now, advised she may use chronicall y as has ongoing allergy and sinus symptoms. Pain of mu ltiple joints 53251426 M25.50 JOSIANE neg previously . Will also check ESR. If neg, await normalizat ion of thyroid before further investigat ion or treatment. [id number] MD Ashley Barakat 14 IM [address] [facility] [address] [place] [address], [place] [address] 04/14/2021 10:19:00 04/16/2021 11:45:26 Hypothyroidism 09893713 E03.9 history of hypothyroi dism, off all meds. She is frustrated because even on high dose levothyrox ine symptoms were poorly controlled . Last TSH was 79 off meds per her report. Will check levels today off meds and get meds started. Will start 150mcg based on prior dosage and weight calculatio n pending results of her lab studies. Chronic pain syndrome 37 6574747 G89.4 I think it is quite likely that she has fibromyalg ia based on history and physical exam findings.s jesus kelley at [facility] to see if can improve sleep.disc ussed fibromyalg ia treatment options, including water therapy, SNRI. She's interested in considerin g if thyorid not the culprilt Addendum-- TSH has normalized , still highly symptomati c, Will start Cymbalta if patient willing. [id number] MD Ashley Barakat 14 IM [address] [facility] [place] [address] 05/26/2021 10:26:57 05/27/2021 18:20:17 Hypothyroidism 93137980 E03.9 back on meds 150mcg, doing well. Recheck TSH at next visit. Fibromyalgia 623668331 M 79.7 using ibuprofen pretty regularly, usually 800mg dailythera pist for soft tissue work if possiblewa ter therapy on ownincreas e duloxetine to 60mg, tolerating well Screening mammography 24 273142 Z12.31 desires screening, ordered. [id number] MD Ashley Barakat 14 IM [address] [facility] [place] [address] 11/01/2022 09:53:20 11/02/2022 09:54:18 Obesity 123603999 E66.9 discussed healthy eating habits and exercise. Offered seeing dietitian, she declined for now. Changing c olor of pigmented skin lesion 316921578 L98.8 May be SK but cannot exclude malignancy with several worrisome features. Discussed removal in procedure clinic-- we discussed shave, excision, and punch biopsy, patient wants punch biopsy. Discussed risks and benefits of each, she is not worried about having a suture in place or scarring. Fibromyalgia 600549952 M 79.7 using ibuprofen pretty regularly, usually 800mg dailythera pist for soft tissue work if possiblewa ter therapy on ownincreas e duloxetine to 60mg, tolerating well Hypothyroidism 74723902 E03.9 On 150mcg daily, will check labs. Refill for 1 year if well managed Hyperlipid emia screening 447096989 Z13.220 screening Hepatitis C screening 41 9438455 Z11.59 one time screening Malaise and fatigue 2717 60919 R53.83 STOP-BANG gives score of only 1, low risk. Will look for other causes of fatigue before revisiting sleep apnea as a possibilit y. Reports hx of anemia and thalassemi a, will recheck labs. Smoker 03597521 F17.200 Not ready to quit yet. Generalize d anxiety disorder 68565702 F41.1 would like to add hydroxyzin e 25mg to her regimen for PRN use. Resume Cymbalta.H as already had therapy, counseling , tried fluoxetine (not a fan) but not other SSRI. [id number] MD Ashley Barakat 14 IM [address] [facility] [place] [address] 11/05/2022 10:29:27 11/10/2022 10:47:05 Skin lesion 25611533 L98.9 Differenti al Diagnosis: Melanoma vs sebaceous keratosis vs Benign melanocyti c nevusSkin lesion was removed with punch biopsy without complicati ons. Patient will follow up in 7-10 days for suture removal.(o rder placed in seperate order set). [id number] MD Ashley Hernandez 14 IM [address] [facility] [place] [address] 07/03/2024 10:28:09 07/25/2024 13:50:01 Pain in finger of right hand 7973173426 13373 M79.644 Doubt fracture. Did offer XR which she would like. Fall W19.XXXD Mechanical ground level fall on ice while at work. Agree with evaluation done in ED. She is oriented. Neuro exam if unremarkab le. She is not on anticoagul ation. Does have mild tenderness lateral to left eye with minimal ecchymosis . Doubt significan t facial fracture. Discussed plan for ice as needed for pain control as well as tylenol. [id number] MD Ashley DAVIS 14 IM [address] [facility] [place] [address] 07/25/2024 09:19:08 08/20/2024 09:22:15 Pain of scar 489593615 L90.5 Discussed scar massage, sun protection , and moisturiza tion to decrease appearance of scar. Discussed that is is normal to have mild numbness around a scar and this can take months to go away. Exam is reassuring . Follow up as needed. Health Concerns Section Related Observation LastModified by Organization Detai ls LastModified Time None Recorded Concern Status LastModified by Organization Details LastModified Time None Recorded Advance Directives Directive N: Payers Insurance Date Sequence Insurance Name Policy Number Policy Warren Covered Member ID Warren Member ID Guarantor Name 08/20/2024 1 [facility] - DOS ON OR AFTER 20 (MEDICAID REPLACEMENT - HMO) Hunter Cheney Mac [id number] Hunter Cheney Mac 07/03/2024 1 [facility] - DOS PRIOR TO 2020 (MEDICAID REPLACEMENT - HMO) Hunter Mac [id number] Hunter Cheney Mac 07/03/2024 1 [facility] (MEDICAID HMO) Hunter Mac [id number] Hunter Watts Notes Date Note Type Note Provider Name and Address Organization Details Recorded Time 05/26/2021 text/html at home BPs are runnin/74 average (brings in monitor readings)here to F/u on fibromyalgia, hpothyroidism, and recurrent sciaticaAlso has espisodes diverticulitis, holds out as long as possible and then gives in and goes to ED.Doesn't like narcotic pain meds but takes them when she has diverticulitis or sciatica flare.Has done PT in the past and feels like she knows how to do exercises for her back and not sure she has time to go to PT now. Pain low back on either side, sometimes only into buttock, when flares goes all the way down and leg gives out on both. L side is worse than R. Also has weird feeling on the inside of the L lower leg-- anteromedially hurts/sore. Renae Bucio MD Attn: [address] [place], [address], [place] - [facility] 05/27/2021 12:45:07 11/01/2022 text/html here to follow u p on fibromyalgia. She has gone off all meds and is not feeling good at all. Her mood is especially bad, mostly anxiety. Trying to increase her duloxetine to 60mg made her sick but felt good on the 30mg from pain perspective, didn't help with the anxiety at all. wants to lose weight and says she eats very little but can't lose weight. Denies that she could eat any less or better than she does. anxiety is severe. reports buspirone didn't work. hydroxyzine 50mg made her too tired but maybe helped otherwise. Fluoxetine made her feel like a zombie. Can't recall any other SSRI she may have tried in the past. 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 Has a skin lesion on her mid back she wants us to check. Has been maybe changing over the last few months, was noticed by someone else so she isn't sure. Also c/o achy and tingly feeling from R elbow down to pink finger, happens in the morning and has to shake out, present for years. No injury. Goes away but can take an hour or two after awakening. no prior investigation or treatment. Renae Bucio MD Attn: [address] [place], [address], [facility] 11/01/2022 14:26:46 11/05/2022 text/html Hunter is a 47 y o F presenting for punch biopsy of lesion on her upper back. Rash is measured 3mm by 4 mm and is pigmented in color on an erythematous base. Renae Bucio MD Attn: [address] [place], [address], [facility] 11/09/2022 16:18:15 07/03/2024 text/html Hunter is a 49 y /o F who presents to the clinic for ED follow up. States she works at [employer] in [place]. She slipped on the ice as she exited the building for a break while at work. She landed on her right side and hit her head on the concrete. Denies any pain currently to her head. Also noted to have right hand pain which is still present. Has been taking 400 mg of ibuprofen and 500 mg of tylenol every 4 hours. Is still having some pain around her eye and 5th finger when she moves it. Right eye is watery but no vision change. No confusion. Has not been using ice. She is concerned that CT head or XR of hand was not done at hospital. Víctor Sanchez MD Attn: Accounting,[address] [place], [address], [facility] 07/25/2024 13:04:25 07/25/2024 text/html 49 yr old f/ her e with concern for numbness around her repaired laceration that she sustained after a fall while at work on a smoke break. Mechanical fall due to ice.Is having sharp and shooting pain over the scar. No sore throat, rhinorrhea, ear pain, chest pain, palpitations, SOB, exercise intolerance, nausea, vomiting, abdominal pain, dysuria, urgency, skin rash, or change in mood. No vision changes. NIHARIKA MCMILLAN MD Attn: Accounting,[address] [place], [address], [facility] 08/17/2024 17:39:19 OBGyn Episode No OBEpisode recorded.
--- OUTSIDE RECORDS SUMMARY | 2025-01-08 15:26 | XMS_ITS | Clinical Summary ---
Author Organization [facility] Address [address] [place] [address] Phone Care Team Providers Care Blocker Hand Name Role Phone Renae Bucio MD Primary Care Provider + Allergies Active Allergy Reactions Criticality Noted Date Comments Sumatriptan Anaphylaxis,Shortnes s of Breath High 06/17/2018 made me stop breathing Levofloxacin Diarrhea,Vomiting Medium 06/17/2018 Morphine Itching Medium 06/17/2018 made me feel like my skin was burning Metoclopramide Unknown 06/17/2018 As child Medications HYDROcodone-acet aminophen (NORCO) 5-325 MG Tablet Take 1-2 Tabs by mouth. 11/25/2018 Active levothyroxine (SYNTHROID) 125 MCG Tablet TAKE 1 TABLET BY MOUTH EVERY DAY 90 Tab 1 11/15/2019 Active Cyclobenzaprine HCl (FLEXERIL PO) Take 10 mg by mouth 3 times daily as needed. 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 02/01/2019 ETD (Eustachian tube dysfunction), bilateral Family History Medical History Relation Name Comments Diabetes Mother Heart Disease Mother Hypertension Mother Other-comment Mother hyspercholeste rolemia Cancer Paternal Grandfather stomach Relation Name Status Comments Father Mother Alive Paternal Grandfather Social History Tobacco Use Types Packs/Day Years Used Date Smoking Tobacco: Every Day Cigarettes 1 30 Smokeless Tobacco: Never Tobacco Cessation:Ready to Q uit: No; Counseling Given: Yes Alcohol Use Standard Drinks/Week Comments No 0 (1 standard drink = 0.6 oz pur e alcohol) Comments No Sex and Gender Information Value Date Recorded Sex Assigned at Not on file Legal Sex Female 10:13 PM CDT Gender Identity Not on file Sexual Orientation Not on file Last Filed Vital Signs Vital Sign Reading Time Taken Comments Blood Pressure 118/75 01/27/2022 4:00 PM CDT Pulse 90 01/27/2022 4:00 PM CDT Temperature 37.4 C (99.4 F) 01/27/2022 2:07 PM CDT Respiratory Rate 16 01/27/2022 4:00 PM CDT Oxygen Saturation 98% 01/27/2022 4:00 PM CDT Inhaled Oxygen Concentration - - Weight 76.2 kg (168 lb) 01/27/2022 2:07 PM CDT Height 157.5 cm (5' 2) 01/27/2022 2:07 PM CDT Body Mass Index 30.73 01/27/2022 2:07 PM CDT Plan of Treatment Health Maintenance Due Date Last Done Comments Hepatitis C Virus (HCV) Screening 1973 TdaP Immunization 1973 Hepatitis B Immunization (1 of 3 - 19+ 3-dose series) 1992 Pap Smear 1994 Cervical Cancer Screening (CCS) 2003 HPV/Cotest 2003 Cologuard 2018 Immunochemical Fecal Occult Blood 2018 Pneumococcal Immunization (5 0+ years) (1 of 1 - PCV) 2023 Zoster Immunization (1 of 2) 2023 SARS-COV-2 Immunization ( - 2023- season) 2024 Colonoscopy 02/21/2024 02/20/2019 Colorectal Cancer Screening 02/21/2024 Influenza Immunization (#1) 2025 04/29/2013 Respiratory Syncytial Virus (RSV) Immunization (Adult) (1 - 1-dose 75+ series) 2048 Human Papillomavirus (HPV) Immunization Aged Out No longer eligible b ased on patient's age to complete this topic Meningococcal Immunization (ACWY) Aged Out No longer eligible based on patient's age to complete this topic Rotavirus Immunization Aged Out No lo nger eligible based on patient's age to complete this topic Insurance MEDICAID [employer] Care Teams Blocker Hand Relationship Specialty Start Date End Date Renae Bucio MD [address] [place] [address] [address] [place] [id number] PCP - General Family Medicine 01/27/22
--- OUTSIDE RECORDS SUMMARY | 2025-01-08 15:26 | XMS_ITS | Clinical Summary ---
Author Organization [facility] Address [address] [place] [address] Care Team Providers Care Skiver Machine Operator Name Role Phone Radha Hylton MD Primary Care Provider Source Comments [facility],non-owned Affiliates and Associated Physician Practices is amultiple site organization consisting of ambulatory clinics and hospital sitesin [place], [place], [place] and [place]. This disclosure is being madepursuant to the Care Everywhere program and may not contain all information available regarding this patient. Last updated 18.[facility] Social History Tobacco Use Types Packs/Day Years Used Date Smoking Tobacco: Never Assessed Comments Unknown Sex and Gender Information Value Date Recorded Sex Assigned at Not on file Legal Sex Female 6:19 AM STUDY COORDINATOR Gender Identity Not on file Sexual Orientation Not on file Last Filed Vital Signs Vital Sign Reading Time Taken Comments Blood Pressure 118/80 09/24/2015 11:04 AM CDT Pulse 82 09/24/2015 11:04 AM CDT Temperature - - Respiratory Rate 14 09/24/2015 11:04 AM CDT Oxygen Saturation - - Inhaled Oxygen Concentration - - Weight 80.7 kg (178 lb) 09/24/2015 11:04 AM CDT Height 154.9 cm (5' 1) 09/24/2015 11:04 AM CDT Body Mass Index 33.63 09/24/2015 11:04 AM CDT Plan of Treatment Health Maintenance Due Date Last Done Comments COLOGUARD (AGES 45-75) - COL ON CA SCREENING 1973 COLON MONITORING 1973 COLONOSCOPY - COLON CA SCREENING 1973 CT COLONOGRAPHY - COLON CA SCREENING 1973 Colorectal Cancer Screening 1973 FIT - COLON CA SCREENING 1973 FLEX SIG - COLON CA SCREENING 1973 LIPID TESTING 1973 MAMMOGRAM 1973 HIV SCREENING 1988 HEPATITIS C SCREENING 03/02/1991 DTAP/TDAP/TD VACCINES (1 - Tdap) 1992 HEPATITIS B VACCINE (1 of 3 - 19+ 3-dose series) 1992 PNEUMOCOCCAL VACCINE 50+ (1 of 1 - PCV) 2023 ZOSTER VACCINE (1 of 2) 2023 COVID-19 VACCINE (1 - 2023-2 5 season) 2024 DEPRESSION SCREENING 06/20/2024 INFLUENZA VACCINE (#1) 2025 HIB VACCINE Aged Out No longer eligi ble based on patient's age to complete this topic HPV VACCINE Aged Out No longer eligi ble based on patient's age to complete this topic MENINGOCOCCAL (Group B) VACC INE SHARED DECISION-MAKING Aged Out No longer eligibl e based on patient's age to complete this topic MENINGOCOCCAL GROUPS A/C/Y/W VACCINE Aged Out No longer eligible b ased on patient's age to complete this topic Insurance [facility] Care Teams Skiver Machine Operator Relationship Specialty Start Date End Date Radha Hylton MD [facility] [place] [id number] PCP - General 12/16/17
--- OUTSIDE RECORDS SUMMARY | 2025-01-08 15:26 | XMS_ITS | Clinical Summary ---
Author Organization [facility] Address [address] [place] [address] Care Team Providers Care Machine Silk Screen Printer Name Role Phone Renae Bucio MD Primary Care Provider + Allergies Active Allergy Reactions Criticality Noted Date Comments Amoxicillin-Pot Clavulanate Vomiting Low 01/28/2021 Levofloxacin Diarrhea,Vomiting High 06/12/2024 Metoclopramide Unknown,Other (See comments) Low 10/17/2017 Given to pt as child and before surgery and had a hard time coming out of anesthesia. Morphine Itching Medium Sumatriptan Unknown,Shortness of breath High 03/10/2018 Decreased Respirations per pt report Medications levothyroxine (SYNTHROID) 125 mcg tablet Take 175 mcg by mouth daily 11/15/19 20 Active hydrOXYzine (VISTARIL) 50 mg capsule Take 1 capsule (50 mg total) by mouth 3 (three) times a day as needed for itching (sleep) 30 capsule 05/04/20 20 Active Additional Information Patient not taking.Reported on 02/11/2023 ondansetron ODT (ZOFRAN-ODT) 8 mg disintegrating tablet Take 1 tablet (8 mg total) by mouth every 8 (eight) hours as needed for nausea or vomiting 30 tablet 12/28/19 23 Active Additional Information Patient not taking.Reported on 02/11/2023 naproxen (ANAPROX DS) 550 mg tablet Take 1 tablet (550 mg total) by mouth 2 (two) times a day with meals 14 tablet 01/18/20 23 Active Additional Information Patient not taking.Reported on 02/11/2023 fluticasone propionate (FLONASE) 50 mcg/actuation nasal sprayIndications:B ilateral otitis media, unspecified otitis media type,Dysfunction of both eustachian tubes Administer 2 sprays into each nostril daily 16 g 11 02/12/20 23 Active Additional Information Patient not taking.Reported on 04/18/2023 benzonatate (TESSALON) 100 mg capsuleIndications :Cough Take 1 capsule (100 mg total) by mouth every 8 (eight) hours 21 capsule 04/22/20 23 Active Active Problems Problem Noted Date Diagnosed Date Dysfunction of both eustachian tubes 02/11/2023 Assessment & Plan (04/18/2023 10:01 AM CDT): Bilaterally myringotomy with Ear tube placement as treatment for Eustachian tube dysfunction discussed Wishes are to proceed with Observation at this time May call [facility] if wishes are to proceed with hearing aids Adamantly refuses to discuss surgery, advised in operating room due to retraction versus in Office procedure for myringotomy and she reported she would not even consider ear tube placement in the Office even if this was an option Assessment & Plan (02/11/2023 9:08 AM CDT): Eustachian tube dysfunction Hearing test [facility] Audiology Discussed options for continued observation, Flonase 2 sprays into each nostril while looking down over the sink, do not sniff in or blow nose after use for at least 30 minutes daily versus ear tube placement Currently wishing to trial Flonase again Bilateral otitis media 02/11/2023 Assessment & Plan (02/11/2023 9:08 AM CDT): Eustachian tube dysfunction Hearing test [facility] Audiology Discussed options for continued observation, Flonase 2 sprays into each nostril while looking down over the sink, do not sniff in or blow nose after use for at least 30 minutes daily versus ear tube placement Acute left otitis media 11/02/2022 COVID-19 06/03/2021 Intractable migraine without aura and without status migrainosus 09/08/2020 Acute maxillary sinusitis 09/08/2020 Pruritic dermatitis 06/08/2019 Sensorineural hearing loss, asymmetrical 019 Assessment & Plan (07/13/2018 1:30 PM DIRECTOR OF ADVERTISING SALES): Patient is noted to have 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 The retraction is smaller a has improved in the right tympanic membrane. Minimal amount of non infectious serous fluid remain. Assessment & Plan (06/26/2018 12:58 PM DIRECTOR OF ADVERTISING SALES): Patient demonstrates non infectious middle ear effusion with retraction. Recommend that the patient complete her antibiotics as prescribed. Sensor symptoms developed spontaneously and has not had any prior otologic problems during her adulthood hopefully she respond favorably to conservative management and not require any surgical procedure. Patient was made aware that she may require a ventilation tube should the retraction pocket and middle ear effusion continue to persist on follow-up. 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 There is no middle ear pathology. No treatment is required at this time. Assessment & Plan (06/26/2018 12:59 PM DIRECTOR OF ADVERTISING SALES): Patient is noted to have a small inferior posterior tympanic membrane perforation that is chronic in nature. There is no signs of any inflammation or infectious process. No middle ear effusion. This possibly was a result of a prior ventilation tube placed during childhood. Based on what is going on with her left ear I do not recommend repairing the perforation at this time. We will follow it conservatively. Diverticulitis of sigmoid colon 10/17/2017 Immunizations Immunization Administration Dates Next Due Hep B Vaccine 07/14/2016 Influenza, Quadrivalent, Spl it, Preservative Free, Intramuscular 07/16/2016 Influenza, Trivalent, Preservative Free, Intramu scular 03/17/2017 Tdap 06/12/2024 Surgical History Surgery Date Site/Laterality Comments TYMPANOPLASTY TYMPANOSTOMY TUBE PLACEMENT Medical History Medical History Date Comments Hypothyroidism Migraines Diverticulitis Covid-19 Fibromyalgia Thalassemia Cervical cancer (HCC) Family History Medical History Relation Name Comments Hearing loss Sister Relation Name Status Comments Sister Social History Tobacco Use Types Packs/Day Years Used Date Smoking Tobacco: Every Day Cigarettes Smokeless Tobacco: Never Tobacco Cessation:Ready to Q uit: Not Asked; Counseling Given: Not Answered Alcohol Use Standard Drinks/Week Comments No 0 (1 standard drink = 0.6 oz pur e alcohol) Personal Safety Answer Date Recorded Have you ever been in or are you currently in a harmful physical or emotional relationship or is someone making you feel afraid or unsafe? Denies 07/02/2024 Comments No Sex and Gender Information Value Date Recorded Sex Assigned at Not on file Legal Sex Female 4:21 PM DIRECTOR OF ADVERTISING SALES Gender Identity Not on file Sexual Orientation Straight 03/18/2021 8: 36 AM CDT Obstetrics History Para Term AB IAB SAB Ectopic Multiple Livin g Live Births 7 7 7 Date Outcome GA Total Labor Labor/2nd/3rd Weight Sex Type Anes PTL Theresa A1 A5 Name Clin Term Term Term Term Term Term Term Last Filed Vital Signs Vital Sign Reading Time Taken Comments Blood Pressure 134/81 07/02/2024 1:59 AM DIRECTOR OF ADVERTISING SALES Pulse 106 07/02/2024 1:59 AM DIRECTOR OF ADVERTISING SALES Temperature 36.9 C (98.4 F) 07/02/2024 1:59 AM DIRECTOR OF ADVERTISING SALES Respiratory Rate 18 07/02/2024 1:59 AM DIRECTOR OF ADVERTISING SALES Oxygen Saturation 99% 07/02/2024 1:59 AM DIRECTOR OF ADVERTISING SALES Inhaled Oxygen Concentration - - Weight 76.7 kg (169 lb) 07/02/2024 1:59 AM DIRECTOR OF ADVERTISING SALES Height 154.9 cm (5' 1) 07/02/2024 1:59 AM DIRECTOR OF ADVERTISING SALES Body Mass Index 31.93 07/02/2024 1:59 AM DIRECTOR OF ADVERTISING SALES Plan of Treatment Health Maintenance Due Date Last Done Comments Cervical Cancer Screening 1973 Colon Cancer Screening-Colonoscopy 1973 Depression Screening 1973 Hepatitis C Screening 1973 Regular Well Visit/Exam 18-64 1991 Pneumococcal vaccine <65 (1 of 2 - PCV) 1992 Zoster Vaccine (1 of 2) 2023 Breast Cancer Screening-Mammogram 10/20/2023 023 Influenza Vaccine (Season Ended) 2025 03/17/20 17, 07/16/2016 DTaP/Tdap/Td Vaccine (2 - Td or Tdap) 06/12/2034 Hepatitis B Screening Completed 07/14/2016 Procedures Procedure Name Priority Date/Time Associated Diagnosis Comments SCREENING MAMMOGRAM BILATERAL [place] Schedule Routine, Read Routine (OP Routine) 10/19/2022 1:23 PM CDT Encounter for other screening for malignant neoplasm of breast from Last 3 Months or Most Recently Relevant to Health Maintenance Results * Screening Mammogram Bilateral [place] (10/19/2022 1:23 PM CDT) Anatomical Region Laterality Modality Breast Bilateral Mammography 10/20/2022 7:57 AM CDT Impressions 10/20/2022 7:57 AM CDT No evidence of malignancy in either breast. FINAL ASSESSMENT: BI-RADS Category 1: Negative. RECOMMENDATION: Recommend return for annual screening mammogram in 12 months. Electronically signed by: Roselia Zuniga M.D. Narrative 10/20/2022 7:57 AM CDT EXAMINATION: BILATERAL SCREENING MAMMOGRAM COMPARISON: Baseline. TECHNIQUE: Full-field 2D and digital breast tomosynthesis (DBT) images were obtained. CAD was utilized. BREAST PARENCHYMAL COMPOSITION: There are scattered areas of fibroglandular density. FINDINGS: There is no suspicious mass, calcification, or distortion in either breast. There has been no significant interval change from the prior study. Anh Mosqueda NP IMG MAMMO PROCEDURES Fi nal Result from Last 3 Months or Most Recently Relevant to Health Maintenance Insurance [facility] [employer] [address] [address] Care Teams Machine Silk Screen Printer Relationship Specialty Start Date End Date Renae Bucio MD PCP - General 05/28/21
--- OUTSIDE RECORDS SUMMARY | 2025-01-08 15:26 | XMS_ITS | Referral Summary ---
Author Organization [facility] Address [address] [place] [address] Care Team Providers Care Stitch Bonding Machine Tender Helper Name Role Phone Renae Bucio MD Primary [...] with Observation at this time May call [facility] if wishes are to proceed with hearing aids Adamantly refuses to discuss surgery, advised in operating room due to retraction versus in Office procedure for myringotomy and she reported she would not even consider ear tube placement in the Office even if this was an option Assessment & Plan (02/11/2023 9:08 AM CDT): Eustachian tube dysfunction Hearing test [facility] Audiology Discussed options for continued observation, Flonase 2 sprays into each nostril while looking down over the sink, do not sniff in or blow nose after use for at least 30 minutes daily versus ear tube placement Currently wishing to trial Flonase again Bilateral otitis media 02/11/2023 Assessment & Plan (02/11/2023 9:08 AM CDT): Eustachian tube dysfunction Hearing test [facility] Audiology Discussed options for continued observation, [...] 019 Assessment & Plan (07/13/2018 1:30 PM INBOUND SALES ADVISOR): Patient is noted to have 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 The retraction is smaller a has improved in the right tympanic membrane. Minimal amount of non infectious serous fluid remain. Assessment & Plan (06/26/2018 12:58 PM INBOUND SALES ADVISOR): Patient demonstrates non infectious middle ear effusion [...] 06/26/2018 Assessment & Plan (07/13/2018 1:29 PM INBOUND SALES ADVISOR): A small inferior posterior tympanic membrane perforation is dry. There is no middle ear pathology. No treatment is required at this time. Assessment & Plan (06/26/2018 12:59 PM INBOUND SALES ADVISOR): Patient is noted to have a small [...] Preservative Free, Intramu scular 03/17/2017 Tdap 06/12/2024 Social History Tobacco Use Types Packs/Day Years [...] on file Legal Sex Female 4:21 PM INBOUND SALES ADVISOR Gender Identity Not on file Sexual Orientation Straight 03/18/2021 8: 36 AM CDT Last Filed Vital Signs Vital Sign Reading Time Taken Comments Blood Pressure 134/81 07/02/2024 1:59 AM INBOUND SALES ADVISOR Pulse 106 07/02/2024 1:59 AM INBOUND SALES ADVISOR Temperature 36.9 C (98.4 F) 07/02/2024 1:59 AM INBOUND SALES ADVISOR Respiratory Rate 18 07/02/2024 1:59 AM INBOUND SALES ADVISOR Oxygen Saturation 99% 07/02/2024 1:59 AM INBOUND SALES ADVISOR Inhaled Oxygen Concentration - - Weight 76.7 kg (169 lb) 07/02/2024 1:59 AM INBOUND SALES ADVISOR Height 154.9 cm (5' 1) 07/02/2024 1:59 AM INBOUND SALES ADVISOR Body Mass Index 31.93 07/02/2024 1:59 AM INBOUND SALES ADVISOR Plan of Treatment Not on file Procedures Procedure Name Priority Date/Time Associated Diagnosis [...] Most Recently Relevant to Health Maintenance Insurance [id number] [place] [address] [facility] [employer] [address] [address] Care Teams Stitch Bonding Machine Tender Helper Relationship Specialty Start Date End Date Renae Bucio MD PCP - General 05/28/21
--- NOTE | 2025-01-08 15:28 | ED.SKABFB ---
HPI - Skin/Abscess/Foreign Bdy General Chief complaint: Skin/Abscess/Foreign Body Stated complaint: Insect Bite Time Seen by Provider: 01/08/25 15:38 Source: patient and RN notes reviewed Mode of arrival: ambulatory Limitations: dementia History of Present Illness HPI narrative: 49-year-old female presents with concern for redness, swelling, pain to the right lower leg after she was stung by an insect a week ago. She reports that the time this sting was painful, was more swollen than it is now. She took Benadryl. She reports the swelling is better but the redness has spread and it is tender and warm. She reports she has been tired, and nauseated. MD complaint: other (Redness) Related Data Home Medications ?Medication ?Instructions ?Recorded ?Confirmed ?Last Taken ?Type levothyroxine .ROUTE 01/08/25 Unknown History Allergies Allergy/AdvReac Type Severity Reaction Status Date / Time levofloxacin (From Levaquin) Allergy Unknown Unknown Verified 01/08/25 15:40 metoclopramide (From Reglan) Allergy Unknown Unknown Verified 01/08/25 15:40 morphine Allergy Unknown Unknown Verified 01/08/25 15:40 sumatriptan (From Imitrex) Allergy Unknown Unknown Verified 01/08/25 15:40 Review of Systems Review of Systems: CONSTITUTIONAL: Denies malaise, chills, sweats, or fever. Reports fatigue EYES: Denies redness, or discharge. ENT: Denies rhinorrhea, congestion, swollen lips, swollen tongue CARDIOVASCULAR: Denies chest pain, palpitations, or edema. RESPIRATORY: Denies cough or dyspnea. GASTROINTESTINAL: Denies abdominal pain, vomiting. Reports nausea SKIN: Reports redness, swelling, pain to the right lower leg around the sting site.. Denies purulent drainage, vesicles, bullae, numbness, pain beyond proportion MUSCULOSKELETAL: Denies joint pain or myalgia. NEUROLOGIC: Denies headache. All systems reviewed & are unremarkable except as noted in HPI and below PMFSH Comments At time of signature, agree with nursing past medical, surgical, social and family history. There is no relevant family history pertinent to the presenting complaint Exam Narrative: GENERAL: Well-appearing, well-nourished, and in no acute distress. HEAD: Normocephalic, atraumatic. EYES: PERRLA, conjunctivae clear ENT: Mucous membranes moist. NECK: Supple. No lymphadenopathy CHEST: Clear to auscultation. No respiratory distress. HEART: Regular rate and rhythm. SKIN: Warm, dry. Large area of Erythema, induration, tenderness, warmth with sharp margins noted the right lower lateral leg with induration around the sting site of approximately 8 cm in diameter, no fluctuation or open skin noted. No vesicles, bullae, necrosis, ecchymosis, crepitus noted. NEURO: Alert and oriented x3. PSYCH: Normal mood and affect Course Course Emergency Course: Patient is aware of diagnosis, understands and agrees to treatment plan. Anticipatory guidance given. Patient agrees to follow-up as directed and is aware of reasons to seek care at the emergency department. Portions of this record may have been created with voice recognition software Level of Care: Express Care Visit Vital Signs Vital signs: Vital Signs Temperature 98.2 F 01/08/25 15:36 Pulse Rate 85 01/08/25 15:36 Respiratory Rate 20 01/08/25 15:36 Blood Pressure 145/80 H 01/08/25 15:36 Pulse Oximetry 98 01/08/25 15:36 Oxygen Delivery Room Air 01/08/25 15:36 Temperature 98.2 F 01/08/25 15:36 Pulse Rate 85 01/08/25 15:36 Respiratory Rate 20 01/08/25 15:36 Blood Pressure 145/80 H 01/08/25 15:36 Pulse Oximetry 98 01/08/25 15:36 Oxygen Delivery Room Air 01/08/25 15:36 Reviewed. MDM - Skin/Abscess/Foreign Bdy MDM Narrative Medical decision making narrative: I evaluated this in the [facility] care. History is obtained from patient who is an independent historian and physical exam was performed.? Available medical records were reviewed. ? Exam findings and relevant testing show no acute concerns or changes; patient is non-toxic appearing and is in no distress. Does not appear at this time to be erythema multiforme, bullous, SJS, TEN; no evidence at this time to suggest RMSF, NSTI, endocarditis or Lyme disease; patient looks well, nontoxic and is tolerating oral intake; no neurologic signs or symptoms; no headache, photophobia or neck pain; afebrile.? Patient does not have history of of penetrating trauma, laceration, blunt trauma, recent surgery, immunosuppression, malignancy, obesity, alcoholism, corticosteroid use.? Discussed the importance of follow-up, patient agrees; question, cellulitis versus necrotizing soft tissue infection versus abscess.?? Patient is appropriate for outpatient treatment and follow-up. Critical Care Time Critical Care Time Critical Care Time: No Discharge Plan Discharge Clinical Impression: Cellulitis Patient Disposition: Home Condition: Stable Instructions: Antibiotic Form, Cellulitis (ED) Additional Instructions: Please follow up with your Primary Care Doctor within 48-72 hours - call for an appointment. Rest and elevate affected area. Take Motrin 600mg every 8 hours with food for pain. Please take Antibiotics as directed. If you experience any worsening redness, swelling, streaking (red lines), fever or chills please go to the ER Patient Language: Citizen Of [place] Prescriptions: New cephalexin 500 mg capsule 500 mg PO QID 10 Days Qty: 40 0RF No Action levothyroxine .ROUTE Follow-up/Referrals: UNKNOWN,DOCTOR [Non-Staff] - Time of Disposition: 15:47
[2025-01-08 15:36] VITALS: BP 145/80; PULSE 85; RESP 20; TEMP 36.8; O2SAT 98
== END 2025-01-08 15:50 | disposition home or self-care (01) ==
PROVIDERS: Emergency Provider Nurse Practitioner
DX: L03.115 Cellulitis of right lower limb (principal); E03.9 Hypothyroidism, unspecified
CPT/HCPCS: 99203; G0463

== ENCOUNTER 2025-03-01 15:05 | Emergency (ER) | payer MEDICAID, SELFPAY ==
[2025-03-01 15:08] VITALS: BP 129/79; PULSE 90; RESP 20; TEMP 36.5; O2SAT 98
--- NOTE | 2025-03-01 15:28 | ED.URI ---
HPI - URI/Sore Throat General Chief Complaint: Upper Respiratory Infection Stated Complaint: sneezing/head/throat/nose Time Seen by Provider: 03/01/25 15:29 Source: patient and RN notes reviewed Mode of arrival: ambulatory Limitations: no limitations History of Present Illness HPI Narrative: 49-year-old female presented for complaint of nasal congestion and drainage, sore throat, cough and fatigue. Onset last night. Denies shortness of breath, wheezing, nausea vomiting, diarrhea, lethargy or fever. Not taking anything for symptoms. MD elicited complaint: cough Related Data Home Medications ?Medication ?Instructions ?Recorded ?Confirmed ?Last Taken ?Type levothyroxine .ROUTE 01/08/25 Unknown History Allergies Allergy/AdvReac Type Severity Reaction Status Date / Time amoxicillin (From Augmentin) Allergy Severe Diarrhea Verified 03/01/25 15:27 clavulanic acid (From Allergy Severe Diarrhea Verified 03/01/25 15:27 Augmentin) polyethylene glycol 3350 Allergy Severe Vomiting Verified 03/01/25 15:27 (From Miralax) levofloxacin (From Levaquin) Allergy Unknown Unknown Verified 03/01/25 15:27 metoclopramide (From Reglan) Allergy Unknown Unknown Verified 03/01/25 15:27 morphine Allergy Unknown Unknown Verified 03/01/25 15:27 sumatriptan (From Imitrex) Allergy Unknown Unknown Verified 03/01/25 15:27 Review of Systems Review of Systems: CONSTITUTIONAL: Endorses malaise, body aches, chills, sweats, fever EYES: Denies visual changes, redness, or discharge ENT: Reports rhinorrhea, congestion, Denies otalgia, sore throat CARDIOVASCULAR: Denies chest pain, palpitations, edema RESPIRATORY: Reports cough, post nasal drainage. Denies dyspnea GASTROINTESTINAL: Denies abdominal pain, nausea, vomiting, diarrhea SKIN: Denies rash or itching NEUROLOGIC: Denies headache Exam Narrative: GENERAL: Mildly Ill-appearing, nontoxic no acute distress. EYES: conjunctivae clear ENT: Mucous membranes moist. TMs pearly cornelius with dull light reflex and clear effusion bilaterally; no tragal tenderness. Oropharynx erythematous without lesions or exudate, tonsils enlarged 2+ without exudate. no drooling, no hoarseness, no trismus, uvula midline. No tripod positioning, muffled voice, soft palate or pharyngeal wall bulging NECK: Supple. No lymphadenopathy CHEST: Clear to auscultation, breath sounds equal. HEART: Regular rate and rhythm. SKIN: Warm, dry, no rash. NEURO: Alert and oriented x3. PSYCH: Normal mood and affect Course Course Emergency Course: Patient is aware of diagnosis, understands and agrees to treatment plan. Anticipatory guidance given. Patient agrees to follow-up as directed and is aware of reasons to seek care at the emergency department. Portions of this record may have been created with voice recognition software Level of Care: Express Care Visit Vital Signs Vital signs: Vital Signs Temperature 97.7 F 03/01/25 15:08 Pulse Rate 90 03/01/25 15:08 Respiratory Rate 20 03/01/25 15:08 Blood Pressure 129/79 03/01/25 15:08 Pulse Oximetry 98 03/01/25 15:08 Oxygen Delivery Room Air 03/01/25 15:08 Temperature 97.7 F 03/01/25 15:08 Pulse Rate 90 03/01/25 15:08 Respiratory Rate 20 03/01/25 15:08 Blood Pressure 129/79 03/01/25 15:08 Pulse Oximetry 98 03/01/25 15:08 Oxygen Delivery Room Air 03/01/25 15:08 reviewed MDM - URI/Sore Throat MDM Narrative Medical decision making narrative: Discussed physical exam findings negative flu, COVID, strep. Advised supportive measures and signs/symptoms to go to the ER. Pt is appropriate for outpt treatment and f/u. Differential Diagnosis Differential diagnosis: Likely upper respiratory infection, sinusitis and viral infection Lab Data Labs: Lab Results 03/01/25 Range/Units 15:43 POC Influenza A Ag Negative (Negative) POC Influenza B Ag Negative (Negative) POC SARS CoV-2 Ag Negative (Negative) POC Grp A Strep Screen Negative (Negative) Discharge Plan Discharge Clinical Impression: Upper respiratory infection Patient Disposition: Home Condition: Stable Instructions: Antibiotic Form, Upper Respiratory Infection (ED) Additional Instructions: flu and COVID negative. Rapid strep swab was negative today You will be notified in a few days if the culture comes back positive for strep, and appropriate antibiotics will be called in at that time. if symptoms are due to a viral illness, it is not treated with antibiotics. Viral symptoms can be present for up to 10-14 days. Recommendations: Flonase spray and Zyrtec for sinus congestion Cough syrup may cause drowsiness; avoid driving or take it at night time. Tylenol every 8 hours as needed for pain/fever Rest and stay hydrated. albuterol inhaler as needed for shortness of breath/wheezing --Follow up with your PCP --Go to the ER immediately if you cannot swallow your saliva, trouble breathing/wheezing, throat swelling, pain is persistent and severe Patient Language: [place] Prescriptions: No Action levothyroxine .ROUTE Follow-up/Referrals: PHYSICIAN NOT ON STAFF,NONSTAFF [Primary Care Provider] Time of Disposition: 16:00
--- OUTSIDE RECORDS SUMMARY | 2025-03-01 15:40 | XMS_ITS | Clinical Summary ---
Author Organization [facility] Address [address] [place] [address] Care Team Providers Care Wheelchair Van Operator First Responder Name Role Phone Radha Hylton MD Primary Care Provider [phone] Source Comments [facility],non-owned Affiliates and Associated Physician Practices is amultiple site organization consisting of ambulatory clinics and hospital sitesin [place], [place], [place] and [place]. This disclosure is being madepursuant to the Care Everywhere program and may not contain all information available regarding this patient. 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
--- OUTSIDE RECORDS SUMMARY | 2025-03-01 15:40 | XMS_ITS | Clinical Summary ---
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 Gender Identity Not on file Sexual Orientation Not on file Plan of Treatment Health Maintenance Due Date Last Done Comments DTAP/TDAP/TD VACCINES (1 - Tdap) 1992 HEPATITIS B VACCINES (1 of 3 - 19+ 3-dose series) 02/18 HPV/Cotest (21-29) 1994 CERVICAL CANCER SCREENING 2003 HPV/Cotest (30-65) 2003 PAP SMEAR 2003 BREAST CANCER SCREENING 2013 COLORECTAL SCREENING 2018 Colorectal Cancer Screening 2018 FIT-DNA Q 3 years 2018 FIT/FOBT Q 1 year 2018 Flex Sig/CT Colonography Q 5 years 2018 ZOSTER VACCINE (1 of 2) 2023 INFLUENZA VACCINE (#1) 2025 Insurance [place] [employer] Care Teams Exterminator Relationship Specialty Start Date End Date Not Found, Stl NO ADDRESS ON FILE PCP - General 03/28/12
--- OUTSIDE RECORDS SUMMARY | 2025-03-01 15:40 | XMS_ITS | Clinical Summary ---
Author Organization [facility] Address [address] [place] [address] Phone Care Team Providers Care Patcher Wood Welder Name Role Phone Renae Bucio MD Primary [...] 2023 Zoster Immunization (1 of 2) 2023 Colonoscopy 02/21/2024 02/20/2019 Colorectal Cancer Screening 02/21/2024 Influenza Immunization (#1) 2025 04/29/2013 SARS-COV-2 Immunization ( - season) 2025 Respiratory Syncytial Virus (RSV) Immunization (Adult) (1 [...] Insurance MEDICAID [employer] Care Teams Patcher Wood Welder Relationship Specialty Start Date End Date Renae Bucio MD [address] [place] [address] [address] [place] [id number] PCP - General Family Medicine 01/27/22
--- OUTSIDE RECORDS SUMMARY | 2025-03-01 15:43 | XMS_ITS | Clinical Summary ---
Author Organization [facility] Address [address] [place] [address] Care Team Providers Care Catering Sales Manager Name Role Phone Renae Bucio MD Primary [...] with Observation at this time May call [facility] if wishes are to proceed with hearing aids Adamantly refuses to discuss surgery, advised in operating room due to retraction versus in Office procedure for myringotomy and she reported she would not even consider ear tube placement in the Office even if this was an option Assessment & Plan (02/11/2023 9:08 AM CDT): Eustachian tube dysfunction Hearing test [facility] Discussed options for continued observation, Flonase 2 sprays into each nostril while looking down over the sink, do not sniff in or blow nose after use for at least 30 minutes daily versus ear tube placement Currently wishing to trial Flonase again Bilateral otitis media 02/11/2023 Assessment & Plan (02/11/2023 9:08 AM CDT): Eustachian tube dysfunction Hearing test [facility] Discussed options for continued observation, [...] 019 Assessment & Plan (07/13/2018 1:30 PM PREMIUM REPRESENTATIVE): Patient is noted to have 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 The retraction is smaller a has improved in the right tympanic membrane. Minimal amount of non infectious serous fluid remain. Assessment & Plan (06/26/2018 12:58 PM PREMIUM REPRESENTATIVE): Patient demonstrates non infectious middle ear effusion [...] 06/26/2018 Assessment & Plan (07/13/2018 1:29 PM PREMIUM REPRESENTATIVE): A small inferior posterior tympanic membrane perforation is dry. There is no middle ear pathology. No treatment is required at this time. Assessment & Plan (06/26/2018 12:59 PM PREMIUM REPRESENTATIVE): Patient is noted to have a small [...] on file Legal Sex Female 4:21 PM PREMIUM REPRESENTATIVE Gender Identity Not on file Sexual Orientation [...] Comments Blood Pressure 134/81 07/02/2024 1:59 AM PREMIUM REPRESENTATIVE Pulse 106 07/02/2024 1:59 AM PREMIUM REPRESENTATIVE Temperature 36.9 C (98.4 F) 07/02/2024 1:59 AM PREMIUM REPRESENTATIVE Respiratory Rate 18 07/02/2024 1:59 AM PREMIUM REPRESENTATIVE Oxygen Saturation 99% 07/02/2024 1:59 AM PREMIUM REPRESENTATIVE Inhaled Oxygen Concentration - - Weight 76.7 kg (169 lb) 07/02/2024 1:59 AM PREMIUM REPRESENTATIVE Height 154.9 cm (5' 1) 07/02/2024 1:59 AM PREMIUM REPRESENTATIVE Body Mass Index 31.93 07/02/2024 1:59 AM PREMIUM REPRESENTATIVE Plan of Treatment Health Maintenance Due Date Last Done Comments Cervical Cancer Screening 1973 Colon Cancer Screening-Colonoscopy 1973 Depression Screening 1973 Hepatitis C Screening 1973 Regular Well Visit/Exam 18-64 1991 Pneumococcal vaccine <65 (1 of 2 - PCV) 1992 Zoster Vaccine (1 of 2) 2023 Breast Cancer Screening-Mammogram 10/20/2023 023 Influenza Vaccine (#1) 2025 03/17/2017, 2016 DTaP/Tdap/Td Vaccine (2 - Td or Tdap) [...] change from the prior study. Anh Mosqueda SNAGGER IMG MAMMO PROCEDURES Fi nal Result from Last 3 Months or Most Recently Relevant to Health Maintenance Insurance [facility] Member Subscriber Plan / Payer (Ef fective 2021-Present) Name:Hunter Watts Relation to Subscriber:Self Name:Hunter Watts Payer ID:[id number] (NAIC) Group ID:Not on file Type:MEDICAID RISK OTHER Address: ATTN: CLAIMS DEPT [address] [facility] [place] [id number] [place] [address] Care Teams Catering Sales Manager Relationship Specialty Start Date End Date Renae Bucio MD PCP - General 05/28/21
[2025-03-01 15:45] LABS: EDCOVIDSCREEN Negative (Negative); EDINFLUASCREEN Negative (Negative); EDINFLUBSCREEN Negative (Negative); EDSTREPNEGPOS1 Negative (Negative)
== END 2025-03-01 16:10 | disposition home or self-care (01) ==
PROVIDERS: Emergency Provider Nurse Practitioner Family
DX: J06.9 Acute upper respiratory infection, unspecified (principal); Z20.822 Contact with and (suspected) exposure to COVID-19
CPT/HCPCS: 87081; 87426; 87804; 87880; 99213; G0463